=== PATIENT | male | born 1980 | race Two or more races ===

== ENCOUNTER 2024-09-03 18:30 | Emergency (ER) | payer MEDICAID, SELFPAY ==
[2024-09-03 18:46] VITALS: BP 149/98; PULSE 74; RESP 18; TEMP 36.8; O2SAT 96; BMI 33.6
--- NOTE | 2024-09-03 19:01 | EDNOTE_ITS ---
ED Skin Abcess FB-RME/HPI General Chief complaint: Skin/Abscess/Foreign Body Stated complaint: Rash to left arm, abdomen X 1 week Time Seen by Provider: 09/03/24 18:35 Source: patient and family Arrival date/time: 09/03/24 18:30 This is a case of a 44-year-old male who came in the emergency room due to maculopapular urticarial vesicular rashes on both upper and both lower extremities for 2 weeks after exposure to poison polly due to worsening of the symptoms this patient decided to sought consult here in the emergency room patient denies any shortness of breath no drooling of saliva no facial no throat swelling Limitations: no limitations Related Data Previous Rx's ?Medication ?Instructions ?Recorded ibuprofen 800 mg tablet 800 mg PO Q6H PRN pain #10 t abs 04/25/19 cephalexin 500 mg capsule 500 mg PO QID #40 caps 09/03 diphenhydramine HCl 25 mg capsule 25 mg PO TID PRN itc harsha #30 caps 09/03/24 famotidine 40 mg tablet 40 mg PO BID 10 days #20 tab s 09/03/24 methylprednisolone 4 mg tablets in 4 mg PO QDAY #21 ta bs 09/03/24 a dose pack (Medrol (Kannan)) Allergies Allergy/AdvReac Type Severity Reaction Status Date / Time No Known Allergies Allergy Verified 09/03/24 18:34 Review of Systems Review of Systems Systems Reviewed: All systems reviewed, normal except as documented Constitutional Constitutional: Reports system reviewed and no additional complaints, except as documented and Reports as per HPI ENT Ears, Nose, Mouth, and Throat: Reports system reviewed and no additional complaints, except as documented and Reports as per HPI Cardiovascular Cardiovascular: Reports system reviewed and no additional complaints, except as documented and Reports as per HPI Respiratory Respiratory: Reports system reviewed and no additional complaints, except as documented and Reports as per HPI Gastrointestinal Gastrointestinal: Reports system reviewed and no additional complaints, except as documented and Reports as per HPI Musculoskeletal Musculoskeletal: Reports system reviewed and no additional complaints, except as documented and Reports as per HPI Integumentary/Breasts Skin/Breast: Reports system reviewed and no additional complaints, except as documented, Reports as per HPI and Reports other (Rash) Neurologic Neurologic: Reports system reviewed and no additional complaints, except as documented and Reports as per HPI Past Medical History Social History SMOKING STATUS: Former smoker ED Exam General Limitations: Present no limitations General appearance: Present alert and in no apparent distress Head Head exam: Present atraumatic, normocephalic and normal inspection Eye Eye exam: Present normal appearance, PERRL and EOMI ENT ENT exam: Present normal exam, normal oropharynx, mucous membranes moist and other (heent normal no drooling of salive no face nor throat swelling) Neck Neck exam: Present normal inspection, full ROM and trachea midline; Absent tenderness, meningismus, lymphadenopathy or thyromegaly Chest Chest inspection: Present normal inspection and symmetric chest wall rise Respiratory Respiratory exam: Present normal lung sounds bilaterally; Absent respiratory distress, wheezes, stridor, accessory muscle use or prolonged expiratory phase Cardiovascular Cardiovascular exam: Present regular rate, normal rhythm and normal heart sounds; Absent bradycardia, tachycardia, irregular rhythm or systolic murmur Abdominal Exam Abdominal exam: Present soft and normal bowel sounds Extremities Exam Extremities exam: Present normal inspection and full ROM Back Exam Back exam: Present normal inspection and full ROM Neurological Exam Neurological exam: Present alert, oriented X3, CN II-XII intact, normal gait and reflexes normal; Absent motor sensory deficit Psychiatric Psychiatric exam: Present normal affect and normal mood Skin Skin exam: Present warm, dry, intact, normal color and other (Noted a maculopapular vesicular urticarial rashes on both left upper extremities and left lower extremities with some blister seems infected with redness but no abscess no cellulitis) Course Quality Measures none Orders Category Date Time Status DiphenhydrAMINE INJ [Benadryl Inj] Med 09/03/24 18:55 Discontinued 25 mg IM X1 ONE Famotidine [Pepcid] Med 09/03/24 18:55 Discontinued 40 mg PO X1 ONE MethylPREDNISolone.* [SoluMEDROL Inj] Med 09/03/24 18:55 Discontinued 125 mg IM X1 ONE Vital Signs Vital signs: Vital Signs Temperature 98.2 F 09/03/24 18:46 Pulse Rate 74 09/03/24 18:46 Respiratory Rate 18 09/03/24 18:46 Blood Pressure 149/98 H 09/03/24 18:46 Pulse Oximetry (%) 96 09/03/24 18:46 Oxygen Delivery Method Room Air 09/03/24 18:46 Oxygen saturation 96% in room air normal Skin / Abscess / Foreign Body MDM Narrative MDM Narrative:: This is a case of a 44-year-old male who came in the emergency room due to maculopapular urticarial vesicular rashes on both upper and both lower extremities for 2 weeks after exposure to poison polly due to worsening of the symptoms this patient decided to sought consult here in the emergency room patient denies any shortness of breath no drooling of saliva no facial no throat swelling physical examination patient is awake alert oriented not in distress nontoxic looking afebrile not tachycardic not tachypneic not hypoxic no signs and symptoms of anaphylaxis no signs and symptoms of angioedema HEENT exam normal no drooling of saliva clear breath sound no facial or throat swelling skin exam showedThis is a case of a 44-year-old male who came in the emergency room due to maculopapular urticarial vesicular rashes on both upper and both lower extremities for 2 weeks after exposure to poison polly due to worsening of the symptoms this patient decided to sought consult here in the emergency room patient denies any shortness of breath no drooling of saliva no facial no throat swelling suggestive of possible dermatitis which is infected patient was given Benadryl Solu-Medrol and Pepcid here in the emergency room patient will will be discharged with antibiotic for infection patient was also given Medrol to be started tomorrow and Pepcid and Benadryl for itchiness he was advised to apply calamine lotion to relieve the itching for any worsening symptoms or any emergent concern he is advised to return in the emergency room immediately or call 911 patient understood very well the discharge instruction Patient was discharged with comfortable condition walking with stable gait. Patient verbalized no further complains explained diagnosis and answered patient question. Patient is comfortable with the proposed management plan including the need to follow up with his/her primary care physician and any specialist if applicable Discussed patient for any urgent condition or worsening sx, He/She needed to go to emergency room immediately or call 911. Patient acknowledge the responsibility to follow up as instructed and to monitor her/his symptoms. For any persistence of the symptoms for more than 3-5 days return precaution advised. Discussed the result of the test and was given printed discharge instruction Patient data External records reviewed:: [facility] previous records Clinical information provided by:: patient Social determinants that could affect healthcare access:: none Patient has the following chronic illnesses:: None How is presenting disease/condition affected by chronic disease/condition?: no chronic disease Evaluation data The following diagnostics were reviewed and interpreted by me:: other (specify) (None) Lab and/or radiology exams considered but not ordered:: None Interpretation Summary: None Medications / Prescriptions Medications or Prescriptions considered but not ordered:: Given Medication administrations:: Medication Administration History Discontinued Medications Diphenhydramine HCl (Diphenhydramine Inj 50 Mg/Ml Vial) 25 mg IM X1 ONE Stop: 09/03/24 18:56 Famotidine (Famotidine 20 Mg Tablet) 40 mg PO X1 ONE Stop: 09/03/24 18:56 Methylprednisolone Sodium Succinate (Methylprednisolone Sod Succ 62.5 Mg/Ml 2ml Vial) 125 mg IM X1 ONE Stop: 09/03/24 18:56 Given Consultations Consultation(s) initiated? (list below): No Diagnosis Skin/Abscess Differential Diagnosis: urticaria, cellulitis, eczema and contact dermatitis Most likely diagnosis given after review of the tests above:: Allergic dermatitis secondary to poison polly Admission Indicated Admission indicated?: not indicated Explain why admission is indicated or not indicated:: Not indicated Admission Request Was there a request for admission?: No Admission Attestation Admission request attestation: Not indicated Disposition Plan Disposition Plan: Discharge Discharge Attestation Discharge Attestation: The patient and all family members were given an opportunity to ask questions and understood the discharge instructions. Discharge instructions specifically effects, indications for sooner follow up or return to the emergency department, and the expected course of current diagnosis. Patient condition: Stable Discharge Plan Plan Patient Disposition: HOME (Self Care) Patient condition on transfer: Stable Prescriptions/Referrals Prescriptions/Med Rec: New cephalexin 500 mg capsule 500 mg PO QID Qty: 40 0RF methylprednisolone [Medrol (Kannan)] 4 mg tablets,dose pack 4 mg PO QDAY Qty: 21 0RF famotidine 40 mg tablet 40 mg PO BID 10 Days Qty: 20 0RF diphenhydramine HCl 25 mg capsule 25 mg PO TID PRN (Reason: itching) Qty: 30 0RF No Action ibuprofen 800 mg tablet 800 mg PO Q6H PRN (Reason: pain) Qty: 10 0RF Problem List Clinical Impression: Allergic dermatitis due to poison polly Patient/Caregiver Discharge Instructions Education Materials: Avoiding Poison Polly Poison [place] ..., Poison Polly [place] [facility], ED Contact Dermatitis Additional Instructions: Follow-up with your primary care physician in 2 days for reevaluation for any recurrence persistent worsening symptoms or any emergent concern call 911 or go to the nearest emergency room it is very important to wash all your clothes and linens to remove the poison polly use calamine lotion for severe itchiness take your medication as directed avoid scratching Print Language: Turkmen Stand Alone Forms: [facility]olis Award Info., Patient Portal Info Letter PA/JACKIE Supervising Physician LUCA/JACKIE Supervising Physician: dr sandoval
[2024-09-03] MEDS: MethylPREDNISolone SOD SUCC 62.5 MG/ML 2ML VIAL 125 MG IM (19:12)
[2024-09-03] MEDS: FAMOTIDINE 20 MG TABLET 40 MG PO (19:12)
== END 2024-09-03 20:17 | disposition home or self-care (01) ==
PROVIDERS: Emergency Provider Emergency Medicine; PCP Family Medicine
DX: L23.7 Allergic contact dermatitis due to plants, except food (principal)
CPT/HCPCS: 96372; 99283; J1200; J2919; A9270